=== PATIENT | female | born 1990 | race Caucasian/White ===

== ENCOUNTER 2024-03-12 11:55 | Inpatient (IN) | payer MEDICARE, MEDICAID ==
[~2024-03-12] VITALS: Ht 154.9 cm; Wt 76.4 kg
[2024-03-12] MEDS ORDERED: ACETAMINOPHEN 500 MG TAB PO PRN (12:05)
[2024-03-12] MEDS ORDERED: MOM 30ML SUSPENSION UDC PO PRN (15:40)
[2024-03-12] MEDS ORDERED: EMTR1TAB3 PO (15:42)
[2024-03-12] MEDS ORDERED: RALT40TA PO (15:42)
[2024-03-12] MEDS ORDERED: RISP-105 PO (15:42)
[2024-03-12] MEDS ORDERED: CYPR4TAB36 PO (15:42)
[2024-03-12] MEDS ORDERED: SPRI28TA PO (15:42)
[2024-03-12] MEDS ORDERED: ZOLO100T PO (15:42)
[2024-03-12] MEDS ORDERED: METF500T13 PO (15:42)
[2024-03-12] MEDS ORDERED: CHLO50TA PO (15:42)
[2024-03-12] MEDS ORDERED: MIRT-10 PO (15:42)
[2024-03-12] MEDS ORDERED: TRAZ-257 PO (15:42)
[2024-03-12] MEDS ORDERED: LORA1TAB23 PO (15:42)
[2024-03-12] MEDS ORDERED: RISP-106 PO (15:42)
[2024-03-12] MEDS ORDERED: CHLO100T30 PO (15:42)
[2024-03-12] MEDS ORDERED: MELO7.5T35 PO (15:42)
[2024-03-12] MEDS ORDERED: PANT40TA29 PO (15:42)
[2024-03-12] MEDS ORDERED: QUET50TA4 PO (15:42)
[2024-03-12] MEDS ORDERED: HOME MED LIST COMPLETE! XX SCH (15:45)
[2024-03-12 18:00] VITALS: BP 149/94; TEMP 98.8; O2SAT 98
[2024-03-12] MEDS: HALOPERIDOL LACTATE 5MG/ML VIAL IM STA ×2 (18:21→20:29)
[2024-03-12] MEDS: LORazepam 2 MG/ML 1ML VIAL IM STA ×2 (18:22→20:29)
[2024-03-12 19:00] VITALS: BP 136/65; TEMP 98.1; O2SAT 98
[2024-03-12] MEDS: traZODone 50 MG TAB PO PRN (21:17)
[2024-03-12] MEDS: diphenhydrAMINE 25MG CAP PO PRN (21:17)
[2024-03-13 06:00] VITALS: BP 110/72; TEMP 98; O2SAT 96
[2024-03-13] MEDS: LORazepam 1 MG TAB PO PRN (07:24)
[2024-03-13] MEDS: SERTRALINE 100 MG TAB PO SCH (09:50)
[2024-03-13] MEDS: QUEtiapine FUMARATE 50MG TAB PO SCH (11:11)
[2024-03-13] MEDS: OLANZapine ORAL DISINTEGRATING TAB 5MG PO PRN (17:28)
[2024-03-13 17:38] VITALS: BP 111/69; TEMP 98.4; O2SAT 98
[2024-03-13] MEDS: QUEtiapine FUMARATE 100 MG TAB PO SCH (20:46)
[2024-03-13] MEDS: RALTEGRAVIR 400 MG TAB (ISENTRESS) PO SCH (21:00)
[2024-03-13] MEDS: metFORMIN (GLUCOPHAGE) 500MG TAB PO SCH (21:06)
[2024-03-13] MEDS: FLUCONAZOLE 50MG TABLET PO SCH (21:07)
[2024-03-14] MEDS: PANTOPRAZOLE 40MG TAB (PROTONIX) PO SCH (08:08)
[2024-03-14 08:12] LABS: HIV 1&2 SCREEN NEGATIVE (NEGATIVE)
[2024-03-14 08:20] LABS: HEPATITIS C VIRUS ABY INDEX < 0.02 INDEX (<0.8)
[2024-03-14 09:39] LABS: BACTERIA, URINE AUTO 2+ (NEGATIVE); MUCUS, URINE SMALL (NEGATIVE); RBC, URINE AUTO 2 /HPF (0-3); SQUAMOUS EPITHELIAL CELL UR AU 27 /HPF (0-6); WBC, URINE AUTO 10 /HPF (0-3)
[2024-03-14 09:57] LABS: Trichomonas vaginalis (AMP) NOT DETECTED (NEGATIVE)
[2024-03-14 10:20] LABS: GC DNA AMPLIFICATION NEGATIVE (NEGATIVE)
[2024-03-14 10:31] LABS: APPEARANCE, URINE CLOUDY (CLEAR); BILIRUBIN, URINE AUTO NEGATIVE (NEGATIVE); BLOOD, URINE BLOOD NEGATIVE (NEGATIVE); COLOR, URINE RED (YELLOW); GLUCOSE, URINE (UA) AUTO NEGATIVE (NEGATIVE); KETONE, URINE AUTO NEGATIVE (NEGATIVE); LEUKOCYTE ESTERASE, URINE AUTO 2+ (NEGATIVE); NITRITE, URINE AUTO NEGATIVE (NEGATIVE); PROTEIN, URINE AUTO NEGATIVE (NEGATIVE); SPECIFIC GRAVITY URINE AUTO 1.013 (1.002-1.035); UROBILINOGEN, URINE AUTO 0.2 mg/dL (0.0-2.0)
[2024-03-14] MEDS: EMTRICITABINE/TENOFOVIR 200MG/300MG TABLET PO SCH (11:30)
[2024-03-14] MEDS: LORazepam 1 MG TAB PO ONE (13:53)
[2024-03-14] MEDS: HALOPERIDOL LACTATE 5MG/ML VIAL IM STA ×2 (16:24)
[2024-03-14] MEDS: LORazepam 2 MG/ML 1ML VIAL IM STA ×2 (16:25)
[2024-03-14] MEDS: diphenhydrAMINE 50MG/ML VIAL IM STA ×2 (16:25)
[2024-03-14] MEDS ORDERED: HALOPERIDOL LACTATE 5MG/ML VIAL IM STA (16:38)
[2024-03-14] MEDS ORDERED: diphenhydrAMINE 50MG/ML VIAL IM STA (16:38)
[2024-03-14] MEDS ORDERED: LORazepam 2 MG/ML 1ML VIAL IM STA (16:38)
[2024-03-14 18:06] VITALS: BP 128/82; TEMP 97.7; O2SAT 100
[2024-03-15 18:09] VITALS: BP 135/68; TEMP 97.5
[2024-03-15] MEDS: QUEtiapine FUMARATE 100 MG TAB PO SCH (20:18)
[2024-03-15] MEDS: OLANZapine 10 MG TAB PO SCH (20:18)
[2024-03-16 08:05] VITALS: BP 112/76; TEMP 98; O2SAT 97
[2024-03-16] MEDS: IBUPROFEN 400MG TAB PO PRN (14:51)
[2024-03-16 15:12] VITALS: BP 117/72; TEMP 97.1; O2SAT 99
[2024-03-16] MEDS: ONDANSETRON 4MG ORAL DISINTEGRATING TAB PO PRN (15:42)
[2024-03-16 22:27] LABS: ALBUMIN 3.1 G/DL (3.2-5.2); ALKALINE PHOSPHATASE 136 U/L (46-116); ALT/SGPT 11 U/L (7.0-40); AST/SGOT 10 U/L (<34); BILIRUBIN,TOTAL 0.4 MG/DL (0.3-1.2); BLOOD UREA NITROGEN 13 MG/DL (9-23); CALCIUM LEVEL 8.7 MG/DL (8.5-10.1); CARBON DIOXIDE LEVEL 24 MMOL/L (20-31); CHLORIDE LEVEL 109 MMOL/L (98-107); CREATININE FOR GFR 0.71 MG/DL (0.55-1.30); GLOMERULAR FILTRATION RATE > 60.0 (>60); GLUCOSE, FASTING 94 MG/DL (60-100); MAGNESIUM LEVEL 1.6 MG/DL (1.8-2.4); POTASSIUM SERUM 4.1 MMOL/L (3.5-5.1); SODIUM LEVEL 138 MMOL/L (136-145); TOTAL PROTEIN 5.3 G/DL (5.7-8.2)
[2024-03-16] MEDS: MAGNESIUM OXIDE 400MG TAB (MAG-OX) PO SCH (23:54)
[2024-03-17 06:25] VITALS: BP 107/58; TEMP 98.5; O2SAT 97
[2024-03-17 14:53] VITALS: BP 117/61; TEMP 97.5; O2SAT 100
[2024-03-18 07:07] VITALS: BP 130/65; TEMP 98; O2SAT 97
[2024-03-18] MEDS: QUEtiapine FUMARATE 200 MG TAB PO SCH (10:14)
[2024-03-18] MEDS: MAALOX 30 ML SUSP *UDC PO PRN (11:24)
[2024-03-18 15:12] VITALS: BP 141/68; TEMP 97.9; O2SAT 100
[2024-03-18] MEDS: SIMETHICONE 80MG CHEW TAB PO PRN (15:41)
[2024-03-19 06:51] VITALS: BP 114/65; TEMP 98
[2024-03-20 06:17] VITALS: BP 115/62; TEMP 98.3; O2SAT 98
[2024-03-20 15:20] VITALS: BP 127/90; TEMP 97.9; O2SAT 99
[2024-03-21] MEDS: QUEtiapine FUMARATE 200 MG TAB PO SCH ×2 (08:52→20:48)
[2024-03-21] MEDS: INSULIN LISPRO (NovoLOG) PER UNIT SC SCH ×2 (12:07→20:54)
[2024-03-21 16:18] VITALS: BP 128/77; TEMP 97.3; O2SAT 98
[2024-03-21] MEDS: chlorproMAZINE INJ 50MG/2ML AMP IM STA (17:39)
[2024-03-21] MEDS: LORazepam 2 MG/ML 1ML VIAL IM STA (17:39)
[2024-03-22 06:16] VITALS: BP 116/59; TEMP 97.2; O2SAT 95
[2024-03-22] MEDS: ACETAMINOPHEN TAB 650MG DOSE (2X325MG) PO PRN (14:50)
[2024-03-22 15:51] VITALS: BP 122/78; TEMP 97.8; O2SAT 96
[2024-03-23 06:32] VITALS: BP 160/96; TEMP 98.8; O2SAT 100
[2024-03-23] MEDS: FLUTICASONE PROP 0.05% NASAL SPRAY 16 GM (FLONASE) NARES SCH (09:18)
[2024-03-23] MEDS ORDERED: LORA1TAB23 PO (10:14)
[2024-03-23] MEDS ORDERED: QUET200T2 PO ×2 (10:14)
[2024-03-23] MEDS ORDERED: OLAN1TAB20 PO (10:14)
[2024-03-23] MEDS ORDERED: ATIV1TAB7 PO (10:38)
== END 2024-03-23 11:49 | disposition other institution (70) | DRG 885 ==
LOC: M ED 11:55 → M ED INP 15:40 → M PSY 16:54
PROVIDERS: ADMIT Psychiatry & Neurology Psychiatry; ATTEND Psychiatry & Neurology Psychiatry
DX: F25.9 Schizoaffective disorder, unspecified (principal); F33.9 Major depressive disorder, recurrent, unspecified; R45.851 Suicidal ideations; F79 Unspecified intellectual disabilities; Z78.1 Physical restraint status; E11.9 Type 2 diabetes mellitus without complications; E66.9 Obesity, unspecified; F17.200 Nicotine dependence, unspecified, uncomplicated; K21.9 Gastro-esophageal reflux disease without esophagitis; F60.89 Other specific personality disorders; Z62.810 Personal history of physical and sexual abuse in childhood; Z91.51 Personal history of suicidal behavior; Z81.8 Family history of other mental and behavioral disorders; Z88.5 Allergy status to narcotic agent; Z91.030 Bee allergy status; Z90.49 Acquired absence of other specified parts of digestive tract; Z79.899 Other long term (current) drug therapy; Z68.31 Body mass index [BMI] 31.0-31.9, adult